=== PATIENT | female | born 1995 | race Caucasian/White ===

== ENCOUNTER 2017-07-29 03:24 | Emergency (ER) | payer OTHER ==
[~2017-07-29] VITALS: Ht 152.4 cm; Wt 58.1 kg
--- NOTE | 2017-07-29 03:24 | NUR ---
PT TAKEN TO BED 2 BIB [facility]
[2017-07-29 03:25] VITALS: BP 119/77
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
--- NOTE | 2017-07-29 03:44 | NUR ---
Patient being evaluated by physician at bedside.
--- NOTE | 2017-07-29 04:05 | NUR ---
PATIENT BIB [facility]. PATIENT EXAMINED BY DR. SPANGLER. PATIENT MEDICALLY CLEARED AND RELEASED IN CUSTODY IN STABLE CONDITION. ORIGINAL PRE-BOOK FORM GIVEN TO OFFICER SHERRY.
[2017-07-29 04:06] VITALS: BP 122/78
== END 2017-07-29 04:05 ==
LOC: MED 03:24
DX: Z02.89 Encounter for other administrative examinations (principal); S29.8XXA Other specified injuries of thorax, initial encounter; V49.49XA Driver injured in collision with other motor vehicles in traffic accident, initial encounter; Y93.89 Activity, other specified; Y92.89 Other specified places as the place of occurrence of the external cause; Y99.8 Other external cause status
CPT/HCPCS: 71010; 99283; Q0092